=== PATIENT | female | born 1995 | race Caucasian/White ===

== ENCOUNTER 2019-12-30 13:30 | Inpatient (IN) | payer OTHER ==
[~2019-12-30] VITALS: Ht 160 cm; Wt 79.4 kg
[~2019-12-30 13:30] MED LIST: PRENATAL CAPLE1 EACH PO
== END 2020-01-13 17:23 | DRG 807 ==
LOC: OB/GYN 01-08 13:30 → LDR 01-08 13:30 → OB/GYN 01-11 06:03 → LDR 01-11 06:03 → OB/GYN 01-11 17:00 → SEC-K 01-11 22:59 → OB/GYN 01-11 23:00
PROVIDERS: ADMIT Specialist; ATTEND Specialist
PROC: 10E0XZZ Delivery of Products of Conception, External Approach (ICD-10-PCS; principal; 2020-01-11)
PROC: 0W8NXZZ Division of Female Perineum, External Approach (ICD-10-PCS; 2020-01-11)
PROC: 4A0HXFZ Measurement of Products of Conception, Cardiac Rhythm, External Approach (ICD-10-PCS; 2020-01-11)
DX: O80 Encounter for full-term uncomplicated delivery (principal); Z37.0 Single live birth; Z3A.40 40 weeks gestation of pregnancy